=== PATIENT | female | born 1990 | race Caucasian/White ===

== ENCOUNTER 2020-07-23 06:15 | Outpatient (REF) | payer OTHER, SELFPAY | END 2020-07-23 06:16 | disposition home or self-care (01) | LOC: HO.LAB 06:15 | PROVIDERS: Visit Provider Internal Medicine | DX: Z20.828 Contact with and (suspected) exposure to other viral communicable diseases (principal) | CPT/HCPCS: C9803; U0003 ==

== ENCOUNTER → 2020-08-11 14:48 | Outpatient (BNVA) | payer OTHER, SELFPAY | PROVIDERS: PCP Internal Medicine; Visit Provider Advanced Practice Midwife | DX: O92.29 Other disorders of breast associated with pregnancy and the puerperium (principal); S20.129A Blister (nonthermal) of breast, unspecified breast, initial encounter | CPT/HCPCS: 81025; 99212 ==

== ENCOUNTER → 2020-11-23 09:37 | Outpatient (BNVA) | payer OTHER, SELFPAY | PROVIDERS: Visit Provider Advanced Practice Midwife ==